=== PATIENT | female | born 1965 | race Caucasian/White ===

== ENCOUNTER 2018-08-29 06:02 | Day surgery (SDC) | payer OTHER ==
[~2018-08-29] VITALS: Ht 152.4 cm; Wt 68.2 kg
[2018-08-29 07:06] VITALS: Ht 152.4 cm; Wt 68.2 kg
[2018-08-29] MEDS ORDERED: ATENOLOL (07:16)
[2018-08-29] MEDS ORDERED: NEXIUM (07:16)
[2018-08-29] MEDS ORDERED: METFORMIN (07:16)
[2018-08-29 07:50] VITALS: BP 133/69; PULSE 71; RESP 18
--- NOTE | 2018-08-29 08:04 | PREAC ---
Date/Time of Note Date/Time of Note DATE: 08/29/18 TIME: 08:04 Anesthesia Eval and Record Evaluation Time Pre-Procedure Interview DATE: 08/29/18 TIME: 08:04 Age 52 Sex female NPO: 8 hrs Preoperative diagnosis screening Planned procedure colonoscopy Past Medical History Past Medical History: Includes Endo: Diabetes GI: Obesity Surgery & Anesthesia Issues No known issue Meds Anticoagulation: No Beta Kathy within 24 hr: No Reason Beta Kathy not given: Pt. not on B-Kathy Reported Medications [Atenolol] No Conflict Check 08/29/18 [Metformin] No Conflict Check 08/29/18 [Nexium] No Conflict Check 08/29/18 Meds reviewed: Yes Allergies Coded Allergies: Sulfa (Sulfonamide Antibiotics) (Verified Allergy, Unknown, 08/29/18) Allergies Reviewed: Yes Labs/Studies Labs Reviewed: Reviewed by anesthesiologist test: Negative Pre-procedure Exam Last vitals Vital Signs Date Temp Pulse Resp B/P (MAP) Pulse Ox O2 O2 Flow FiO2 Time Delivery Rate 08/29/18 97.1 71 18 133/69 100 Room Air 07:50 (90) Airway: Adequate mouth opening, Adequate thyromental dist Mallampati: Mallampati II Teeth: Normal Lung: Normal Heart: Normal ASA Physical Status ASA physical status: 2 Emergency: None Planned Anesthetic General/MAC: Mask, MAC Pre-operative Attestations Prior to commencing anesthesia and surgery, the patient was re-evaluated, there was verification of: *The patient's identity *The results of appropriate recent lab work and preoperative vital signs *The above evaluation not changing prior to induction *Anesthetic plan, risk benefits, alternative and complications discussed with patient/family; questions answered; patient/family understands, accepts and wishes to proceed. JUANA HARDEN Aug 29, 2018 08:04
[2018-08-29] MEDS ORDERED: PROPOFOL 40 ML ONE (08:06)
[2018-08-29 08:51] VITALS: BP 121/66; PULSE 67; RESP 16
--- NOTE | 2018-08-29 10:06 | PAC ---
Date/Time of Note Date/Time of Note DATE: 08/29/18 TIME: 10:06 Post-Anesthesia Notes Post-Anesthesia Note Last documented vital signs Vital Signs Date Temp Pulse Resp B/P (MAP) Pulse Ox O2 O2 Flow FiO2 Time Delivery Rate 08/29/18 67 16 121/66 100 Room Air 08:51 (84) 08/29/18 97.1 07:50 Activity: WNL Respiratory function: WNL Cardiovascular function: WNL Mental status: Baseline Pain reasonably controlled: Yes Hydration appropriate: Yes Nausea/Vomiting absent: Yes JUANA HARDEN Aug 29, 2018 10:06
== END 2018-08-29 12:42 | disposition home or self-care (01) ==
LOC: GIL 06:02
PROVIDERS: ATTEND Internal Medicine Gastroenterology
DX: Z12.11 Encounter for screening for malignant neoplasm of colon (principal); K64.8 Other hemorrhoids; E11.9 Type 2 diabetes mellitus without complications
CPT/HCPCS: 82962